=== PATIENT | female | born 1980 | race Two or more races ===

== ENCOUNTER → 2025-04-21 | Outpatient (CLI) | payer MEDICAID, SELFPAY ==
--- NOTE | 2025-04-21 09:00 | XR_ITS ---
Examination: Breast ultrasound complete, bilateral Date and time of exam: April 21, 2025 0939 hours INDICATIONS: Outside mammogram February 12, 2025 12 mm focal asymmetry superior right breast 9 mm focal asymmetry central left breast Technique: Real-time grayscale ultrasonographic imaging bilateral breasts, including all 4 quadrants as well as nipple retroareolar and axillary regions. Findings: Sonographic images right breast 12:00 nodule lobular margins 9 x 10 mm 3:00 cyst 3 x 3 mm 10:00 nodule circumscribed 7 x 7 mm Sonographic images left breast 4:00 nodule lobular margins 11 x 10 mm 4:00 nodule circumscribed 11 x 11 mm 4:00 nodule circumscribed 6 x 6 mm 4:00 nodule circumscribed 8 x 10 mm Retroareolar nodule lobular margins 9 x 9 mm IMPRESSION: BI-RADS Category 3: Probably benign findings One additional 6 month bilateral breast sonography follow-up is needed to document stability of multiple solid nodules described above
--- NOTE | 2025-04-21 10:15 | XR_ITS ---
Examination: Diagnostic digital mammography, bilateral Computer aided detection 3-D breast Tomosynthesis, bilateral Date and time of exam: April 21, 2000 2510 0 3:00 AM INDICATIONS: Outside mammogram February 12, 2025 12 mm asymmetry superior right breast, 9 mm asymmetry central left breast Technique: Nonmagnified MLO, CC views of the breasts to been obtained, reconstructed from 3-D Tomosynthesis images. R2 computer aided detection program utilized for evaluation of suspicious masses and/or abnormal calcifications. 3-D Tomosynthesis images obtained. Findings: The breasts are heterogeneously dense, which may obscure small masses Focal asymmetry remains upper right breast on the spot compression MLO view Nodule inner left breast is confirmed on the spot compression CC view, measuring 12 mm Impression: BI-RADS Category 3: Probably benign findings One additional 6 month bilateral breast sonography follow-up is needed to document stability of asymmetry described above.
== END | disposition home or self-care (01) ==
LOC: CDIM 09:10
DX: R92.333 Mammographic heterogeneous density, bilateral breasts (principal); N64.89 Other specified disorders of breast; N63.15 Unspecified lump in the right breast, overlapping quadrants; N63.11 Unspecified lump in the right breast, upper outer quadrant; N63.42 Unspecified lump in left breast, subareolar; N63.23 Unspecified lump in the left breast, lower outer quadrant
CPT/HCPCS: 76641; 77062; 77066; G0279